=== PATIENT | female | born 1975 | race Two or more races ===

== ENCOUNTER 2020-02-03 14:15 | Emergency (ER) | payer OTHER ==
[2020-02-03 14:22] VITALS: BP 128/77; TEMP 97.8; BMI 31.6
[2020-02-03] MEDS ORDERED: ALBUTEROL SO4 2.5/IPRATROPIUM 0.5 INH SOL 3 ML VIAL.NEB. NEB ONE (15:29)
[2020-02-03] MEDS ORDERED: ACETAMINOPHEN/CAFFEINE/BUTALBITAL 1 TAB PO ONE (15:29)
[2020-02-03] MEDS ORDERED: SODIUM CHLORIDE FOR INHALATION 3 ML VIAL.NEB IH ONE (15:30)
[2020-02-03] MEDS ORDERED: ACETAMINOPHEN/CAFFEINE/BUTALBITAL 1 TAB ONE (15:33)
--- NOTE | 2020-02-03 15:47 | PDOC ---
History of Present Illness - General Chief Complaint: Cold Symptoms Stated Complaint: COUGH/SOB Time Seen by Provider: 02/03/20 15:07 History Source: Patient Exam Limitations: Clinical Condition - History of Present Illness Initial Comments: 02/03/20 15:44 Patient with past medical history of asthma presented with complaint of persistent cough, intermittent shortness of breath and chest tightness and headaches. Patient reports testing positive for influenza 3 days ago and on Tamiflu. Patient went to urgent care today due to persistent cough, malaise and shortness of breath and was advised by urgent care to come to the emergency room due to concern for coronavirus. Patient denies any recent travel or sick contact with anybody testing positive for coronavirus. Patient reported last fever was yesterday and patient has not taken anything for symptoms today. Patient reportedly headache would not go away but patient has not taken anything for headache. Denies nausea, vomiting, chest pain, palpitation, vomiting, dizziness, blurry vision or change in vision. Patient denies any other symptoms Is this a multiple visit Asthma Patient?: No Past History - Past Medical History Allergies/Adverse Reactions: Allergies Allergy/AdvReac Type Severity Reaction Status Date / Time No Known Allergies Allergy Verified 02/03/20 14:19 Home Medications: Ambulatory Orders Albuterol Sulfate Inhaler - [Ventolin Hfa Inhaler -] 2 inh PO Q6H #1 inh 01/21 02/09 Azithromycin [Zithromax 250mg Tablets -] 250 mg PO UTDICT #6 tab 02/03/20 Benzonatate [Tessalon Pearls -] 100 mg PO Q8H PRN #16 capsule 02/03/20 Methylprednisolone [Medrol Dose Berto] 4 mg PO ASDIR #21 tablet 02/03/20 Asthma: Yes COPD: No - Psycho Social/Smoking Cessation Hx Smoking History: Never smoked Hx Alcohol Use: No Drug/Substance Use Hx: No Review of Systems - Review of Systems Able to Perform ROS?: Yes Is the patient limited Wolof proficient: No Constitutional: Yes: Malaise. No: Chills, Fever HEENTM: Yes: Symptoms Reported, See HPI, Nose Congestion. No: Eye Pain, Blurred Vision, Tearing, Recent change in vision, Double Vision, Cataracts, Ear Pain, Ocular Prothesis, Ear Discharge, Nose Pain, Tinnitus, Nose Bleeding, Hearing Loss, Throat Pain, Throat Swelling, Mouth Pain, Dental Problems, Difficulty Swallowing, Mouth Swelling, Other Respiratory: Yes: Symptoms reported, See HPI, Cough, Shortness of Breath (intermittent SOB), Wheezing (intermittent). No: Orthopnea, SOB with Exertion, SOB at Rest, Stridor, Productive cough, Hemoptysis, Other Cardiac (ROS): No: Symptoms Reported, See HPI, Chest Pain, Edema, Irregular Heart Rate, Lightheadedness, Palpitations, Syncope, Chest Tightness, Other ABD/GI: No: Symptoms Reported, See HPI, Constipated, Diarrhea, Nausea, Vomiting, Abdominal cramping Musculoskeletal: No: Symptoms Reported Integumentary: No: Symptoms Reported Neurological: Yes: Symptoms reported, See HPI, Headache. No: Numbness, Paresthesia, Weakness, Dizziness All Other Systems: Reviewed and Negative *Physical Exam - Vital Signs Last Vital Signs Temp Pulse Resp BP Pulse Ox 97.8 F 20 128/77 100 02/03/20 14:19 02/03/20 14:19 02/03/20 14:19 02/03/20 14:19 - Physical Exam 02/03/20 15:43 GENERAL: Well developed, well nourished. Awake and alert. No acute distress. HEENT: Normocephalic, atraumatic. PERRLA, EOMI. No conjunctival pallor. Sclera are non-icteric. Moist mucous membranes. Oropharynx is clear. NECK: Supple. Full ROM. CARDIOVASCULAR: Regular rate and rhythm. No murmurs, rubs, or gallops. Distal pulses are 2+ and symmetric. PULMONARY: No evidence of respiratory distress. Mild diffuse expiratory wheeze to auscultation bilaterally. No rales or rhonchi. ABDOMINAL: Soft. Non-tender. Non-distended. No rebound or guarding. No organomegaly. Normoactive bowel sounds. MUSCULOSKELETAL Normal range of motion at all joints. SKIN: Warm and dry. Normal capillary refill. No rashes. No cyanosis NEUROLOGICAL: Alert, awake, appropriate. Gait is normal without ataxia. PSYCHIATRIC: Cooperative. Good eye contact. Appropriate mood General Appearance: Yes: Nourished, Appropriately Dressed. No: Apparent Distress ED Treatment Course - RADIOLOGY Radiology Studies Ordered: Category Date Time Status CHEST PA & LAT [RAD] Stat Radiology 02/03/20 15:29 Ordered - Medications Given in the ED: ED Medications Discontinued Medications Generic Name Dose Route Start Last Admin Trade Name Danny PRN Reason Stop Dose Admin Acetaminophen/Butalbital/Caffeine 1 tablet 02/03/20 15:29 02/03/20 15:34 Fioricet - PO 02/03/20 15:30 1 tablet ONCE ONE Administration Albuterol/Ipratropium 2 amp 02/03/20 15:29 02/03/20 15:33 Duoneb - NEB 02/03/20 15:30 2 amp ONCE ONE Administration Sodium Chloride 3 ml 02/03/20 15:30 02/03/20 15:34 Normal Saline For Inhalation - IH 02/03/20 15:31 3 ml ONCE ONE Administration Medical Decision Making - Medical Decision Making 02/03/20 15:46 Patient with past medical history of asthma presented with complaint of persistent cough, intermittent shortness of breath and chest tightness and headaches. Patient reports testing positive for influenza 3 days ago and on Tamiflu. Patient went to urgent care today due to persistent cough, malaise and shortness of breath and was advised by urgent care to come to the emergency room due to concern for coronavirus. Patient denies any recent travel or sick contact with anybody testing positive for coronavirus. Patient reported last f ever was yesterday and patient has not taken anything for symptoms today. Patient reportedly headache would not go away but patient has not taken anything for headache. Denies nausea, vomiting, chest pain, palpitation, vomiting, dizziness, blurry vision or change in vision. Patient denies any other symptoms Exam significant for mild diffuse expiratory wheeze otherwise normal exam. Patient in no acute respiratory distress. Patient afebrile. Given recent diagnosis of positive influenza, patient with no exposure to coronavirus, will hold of coronavirus testing as patient is a low risk for co ronavirus. Checks x-ray ordered to rule out pneumonia. DuoNeb with Atrovent and albuterol ordered with saline inhalation. Treat based on chest x-ray results 02/03/20 16:22 Chest x-ray shows no acute infiltrate or abnormality. Patient with improvement in bronchospasm after DuoNeb treatment. Patient feels symptoms might be turning to bacteria and requests antibiotics. Patient advised and vitals be sent to the pharmacy by patient do not feel medication unless worsening symptoms after 3 days of persisting fevers. Prescription for Tessalon Perles as needed for cough sent for patient Medrol pack to help with bronchospasm Ventolin for wheezing with advised to increase fluid intake and follow-up with safety tech Discharge - Discharge Information Problems reviewed: Yes Clinical Impression/Diagnosis: Influenza, URI with cough and congestion Condition: Stable Disposition: HOME - Admission No - Additional Discharge Information Prescriptions: Methylprednisolone [Medrol Dose Berto] 4 mg PO ASDIR #21 tablet Benzonatate [Tessalon Pearls -] 100 mg PO Q8H PRN #16 capsule PRN Reason: Cough Albuterol Sulfate Inhaler - [Ventolin Hfa Inhaler -] 2 inh PO Q6H #1 inh Azithromycin [Zithromax 250mg Tablets -] 250 mg PO UTDICT #6 tab - Follow up/Referral Referrals: Sunny Dacosta MD [Staff Physician] - - Patient Discharge Instructions Patient Printed Discharge Instructions: DI for Viral Upper Respiratory Infection -- Adult Additional Instructions: Your chest x-ray shows no pneumonia. Your symptoms likely from the viral upper respiratory infection. Take prescribed medication as prescribed for cough and congestion. Increase fluid intake. Rest and follow-up with primary care as needed - Post Discharge Activity
== END 2020-02-03 16:21 | disposition home or self-care (01) ==
LOC: JERFT 14:15
PROC: 3E0F7GC Introduction of Other Therapeutic Substance into Respiratory Tract, Via Natural or Artificial Opening (ICD-10-PCS; principal; 2020-02-03)
DX: J11.1 Influenza due to unidentified influenza virus with other respiratory manifestations (principal); R05 Cough
CPT/HCPCS: 71046-TC-FY; 99283-25

== ENCOUNTER 2022-11-26 15:32 | Emergency (ER) | payer OTHER ==
[2022-11-26 15:52] VITALS: RESP 18; TEMP 98.8
[2022-11-26] MEDS ORDERED: ALBUTEROL SO4 2.5/IPRATROPIUM 0.5 INH SOL 3 ML VIAL.NEB. NEB ONE ×2 (16:13→16:58)
[2022-11-26] MEDS ORDERED: predniSONE 20 MG TABLET (UD) PO ONE (16:14)
[2022-11-26] MEDS ORDERED: predniSONE 20 MG TABLET (UD) ONE (16:58)
[2022-11-26 18:28] VITALS: BP 126/75
[2022-11-26 18:38] VITALS: PULSE 103
== END 2022-11-26 19:14 | disposition home or self-care (01) ==
LOC: JER 15:32
PROC: 3E0F7GC Introduction of Other Therapeutic Substance into Respiratory Tract, Via Natural or Artificial Opening (ICD-10-PCS; principal; 2022-11-26)
DX: U07.1 COVID-19 (principal)
CPT/HCPCS: 0241U-QW; 71046-TC-FY; 93005; 93010; 99285-25

== ENCOUNTER 2024-01-10 14:35 | Emergency (ER) | payer OTHER ==
[2024-01-10 14:43] VITALS: TEMP 97.7; BMI 24.5
[2024-01-10] MEDS ORDERED: ALBUTEROL SO4 2.5/IPRATROPIUM 0.5 INH SOL 3 ML VIAL.NEB. NEB ONE (15:26)
[2024-01-10] MEDS: SODIUM CHLORIDE 0.9% 500 ML INFUS.BAG IV ONE (15:46)
[2024-01-10] MEDS: ALBUTEROL SO4 2.5/IPRATROPIUM 0.5 INH SOL 3 ML VIAL.NEB. NEB SCH (15:46)
[2024-01-10 15:57] LABS: BASO % 0.9 % (0-2.0); EOS % 1.7 % (0-4.5); HEMATOCRIT 28.5 % (32.4-45.2); HEMOGLOBIN 8.4 GM/dL (10.7-15.3); LYMPH % 25.4 % (8-40); MCHC 29.5 g/dl (32.0-36.0); MEAN CELL VOLUME 60.7 fl (80-96); MEAN PLT VOLUME 7.3 fl (7.5-11.1); MONO % 8.2 % (3.8-10.2); NEUT % 63.8 % (42.8-82.8); PLATELET COUNT 505 10^3/uL (134-434); RBC 4.69 M/mm3 (3.60-5.2); RDW 19.6 % (11.6-15.6); WHITE BLOOD COUNT 6.9 K/mm3 (4.0-10.0)
[2024-01-10 16:12] LABS: INR 0.95 (0.83-1.09); MCH 17.9 pg (25.7-33.7)
[2024-01-10 16:21] LABS: POTASSIUM 4.1 mmol/L (3.5-5.1)
[2024-01-10 16:23] LABS: CALCIUM 8.9 mg/dL (8.5-10.1)
[2024-01-10 16:24] LABS: ALBUMIN 3.4 g/dl (3.4-5.0); BLOOD UREA NITROGEN 10.7 mg/dL (7-18)
[2024-01-10 16:27] LABS: CREATININE 0.4 mg/dL (0.55-1.3)
[2024-01-10 16:28] LABS: TOT PROT 7.5 g/dl (6.4-8.2)
[2024-01-10 16:29] LABS: BILIRUBIN,TOTAL 0.2 mg/dL (0.2-1)
[2024-01-10 16:40] LABS: ANISOCYTOSIS 3+; MACROCYTOSIS 0
[2024-01-10 16:51] VITALS: BP 101/56; PULSE 85; RESP 19
== END 2024-01-10 16:51 | disposition home or self-care (01) ==
LOC: JER 14:35
PROC: 3E0F7GC Introduction of Other Therapeutic Substance into Respiratory Tract, Via Natural or Artificial Opening (ICD-10-PCS; principal; 2024-01-10)
DX: R06.02 Shortness of breath (principal); R05.9 Cough, unspecified; R42 Dizziness and giddiness; D50.9 Iron deficiency anemia, unspecified; Z20.822 Contact with and (suspected) exposure to COVID-19
CPT/HCPCS: 0241U-QW; 36415; 71046-TC-FY; 80053; 82962; 84703; 85025; 85379; 85610; 85730; 86850; 86900; 86901; 93005; 93010; 99283-25

== ENCOUNTER 2024-06-11 13:19 | Emergency (ER) | payer OTHER ==
[2024-06-11 13:25] VITALS: TEMP 97.6; BMI 24.3
[2024-06-11] MEDS ORDERED: ACETAMINOPHEN INJECTION 100 ML IVPB ONE (15:43)
[2024-06-11] MEDS: ACETAMINOPHEN 1000 MG/100 ML BAG IVPB ONE (16:07)
[2024-06-11] MEDS: SODIUM CHLORIDE 0.9% 500 ML INFUS.BAG IV ONE (16:07)
[2024-06-11 16:17] LABS: BASO % 1.1 % (0-2.0); EOS % 1.3 % (0-4.5); HEMATOCRIT 27.8 % (32.4-45.2); LYMPH % 30.4 % (8-40); MEAN CELL VOLUME 60.1 fl (80-96); MONO % 6.3 % (3.8-10.2); NEUT % 60.9 % (42.8-82.8); PLATELET COUNT 370 10^3/uL (134-434); RBC 4.62 M/mm3 (3.60-5.2); RDW 20.7 % (11.6-15.6); RETICULOCYTES 1.22 % (0.5-1.5); WHITE BLOOD COUNT 6.2 K/mm3 (4.0-10.0)
[2024-06-11 16:18] LABS: MCH 17.4 pg (25.7-33.7)
[2024-06-11 16:33] LABS: CALCIUM 8.3 mg/dL (8.5-10.1)
[2024-06-11 16:34] LABS: ALBUMIN 3.3 g/dl (3.4-5.0); BLOOD UREA NITROGEN 8.9 mg/dL (7-18)
[2024-06-11 16:37] LABS: CREATININE 0.7 mg/dL (0.55-1.3)
[2024-06-11 16:38] LABS: BILIRUBIN,TOTAL 0.2 mg/dL (0.2-1); TOT PROT 6.9 g/dl (6.4-8.2)
[2024-06-11 17:04] LABS: ANISOCYTOSIS 2+; INR 0.95 (0.83-1.09); MACROCYTOSIS 0; PROTHROMBIN TIME (PATIENT) 10.7 SEC (9.7-13.0)
[2024-06-11 18:22] VITALS: BP 117/67; PULSE 78; RESP 20
== END 2024-06-11 18:22 | disposition home or self-care (01) ==
LOC: JER 13:19
PROC: 3E033NZ Introduction of Analgesics, Hypnotics, Sedatives into Peripheral Vein, Percutaneous Approach (ICD-10-PCS; principal; 2024-06-11)
DX: R53.1 Weakness (principal); R42 Dizziness and giddiness; R06.02 Shortness of breath; D50.9 Iron deficiency anemia, unspecified
CPT/HCPCS: 36415; 80053; 82607; 82728; 83010; 83540; 83550; 83615; 84466; 85025; 85045; 85610; 85730; 86850; 86900; 86901; 93005; 93010; 99284-25; J0131